=== PATIENT | male | born 1970 | race Caucasian/White ===

== ENCOUNTER 2017-05-02 11:24 | Emergency (ER) | payer MEDICAID, OTHER ==
[~2017-05-02] VITALS: Ht 167.6 cm; Wt 87.0 kg
[~2017-05-02 11:24] MED LIST: AMO500 PO; GUAI118L22 PO
[2017-05-02 11:26] VITALS: Ht 167.6 cm; Wt 87.0 kg
--- NOTE | 2017-05-02 11:47 | ERD ---
ER Documentation Chief Complaint Date/Time DATE: 05/02/17 TIME: 11:45 Chief Complaint Patient complains of left ear ringing x 1 month HPI 46 yo male comes in with left ear ringing, with intermittent sharp pains on the left ear and vertigo for 1 month. Patient states it is a high-pitched ringing noise, has had sharp pains in the last few seconds. He also describes there is vertigo associated, room is spinning. No fevers or chills, no headache, no neck stiffness. No visual changes. Patient states that he was diagnosed with an ear infection in [place] about a month ago, he states that he took antibiotics and does not recall the name of them. ROS All systems reviewed and are negative except as per history of present illness. Medications Home Meds Active Scripts Cetirizine Hcl* (Zyrtec*) 10 Mg Capsule, 10 MG PO DAILY, #30 TAB Prov:VANDANA HERRMANN PA-C 05/02/17 Fluticasone Propionate* (Fluticasone Propionate* Nasal) 50 Mcg/[place] - 16 Gm [place].susp, 1 SPRAY NASAL BID, #1 BOTTLE TO EACH NOSTRIL Prov:VANDANA HERRMANN PA-C 05/02/17 Guaifenesin/Codeine Phosphate (CHERATUSSIN AC SYRUP) 118 Ml Liquid, 5 ML PO Q8 Y for COUGH, #118 ML Prov:BETTYE CORONADO DO 07/26/16 Amoxicillin* (Amoxicillin*) 500 Mg Cap, 500 MG PO TID for 10 Days, CAP Prov:BETTYE CORONADO DO 07/26/16 Allergies Allergies: Coded Allergies: No Known Allergy (Unverified , 05/02/17) PMhx/Soc Medical and Surgical Hx: pt denies Surgical Hx History of Surgery: No Anesthesia Reaction: No Hx Neurological Disorder: No Hx Respiratory Disorders: No Hx Cardiac Disorders: No Hx Psychiatric Problems: No Hx Alcohol Use: No Hx Substance Use: No Hx Tobacco Use: No Smoking Status: Never smoker Physical Exam Vitals Vital Signs Date Time Temp Pulse Resp B/P Pulse Ox O2 Delivery O2 Flow Rate FiO2 05/02/17 11:26 97.7 83 20 164/95 99 Physical Exam General: Well-developed, well-nourished. The patient appears in no acute distress. HEENT: Head is normocephalic, atraumatic. No scleral icterus. Left TM is bulging and there is fluid behind the left ear drum. Right TM is normal. No rash. Neck: Supple. Nontender. Lungs: Clear to auscultation. Normal air movement. Heart: Regular rate and rhythm. S1 and S2 are normal. No murmurs, gallops, or rubs. Abdomen: Soft, nontender, nondistended. Bowel sounds are normoactive. Extremities: No clubbing or cyanosis. Normal pulses. Moving extremities x 4. No weakness. Neuro: M/S: Alert and oriented Face: EOMI, CN II-XII grossly intact Motor: Normal strength throughout Sensation: Normal sensation throughout Speech: Normal Cerebel: Normal coordination Normal gait Normal finger to nose DTR: 2+ and symmetric upper/lower extremities Skin: Normal turgor. No rash or lesions. Results 24 hrs Patient: CAREN CLOUD : 1970 Age: 46 Sex: M MR #: [id number] DOS: 05/02/17 1139 Ordering MD: VANDANA HERRMANN PA-C Location: [facility] Room/Bed: PROCEDURE: CT Brain without contrast. CLINICAL INDICATION: Tinnitus, Neurologic deficit TECHNIQUE: A CT of the brain was performed on multidetector high-resolution CT scanner utilizing axial sections from the skull base through the vertex without contrast. One or more of the following dose reduction techniques were used: Automated exposure control, Adjustment of the mA and/or kV according to patient size, and/or use of iterative reconstruction technique. DOSE: CTDI = 45 mGy and the DLP = 720 mGy-cm. COMPARISON: Head CT 07/22/2014 FINDINGS: No acute intracranial hemorrhage, significant mass effect or midline shift. The johns-white differentiation is grossly preserved. The ventricles are normal in size for age. No significant opacification of the visualized paranasal sinuses or mastoids. IMPRESSION: No significant interval change identified. No acute intracranial findings. RPTAT: AA .Hussain Naidu MD, Date Time Electronically viewed and signed by .Hussain Naidu MD, on 05/02/2017 13:16 .T/ Procedures/MDM 46-year-old male comes emergency department with tenderness over the past month , she states that he was initially treated for an ear infection on the left side with antibiotics in [place]. States that he has no pain, once in a while he does have sharp pain on the left side of the head. There was some fluid behind the left ear, patient will be given decongestants for this. He was advised to take Tylenol and ibuprofen for pain. He did ask for brain imaging at this time, CT of the head is unremarkable. This patient was asked to recheck with his primary care doctor if symptoms do not improve to get a referral to follow-up with ENT. Departure Diagnosis: Primary Impression: Tinnitus Condition: Good VANDANA HERRMANN PA-C May 02, 2017 11:46
--- NOTE | 2017-05-02 13:16 | RADRPT ---
PROCEDURE: CT Brain without contrast. CLINICAL INDICATION: Tinnitus, Neurologic deficit TECHNIQUE: A CT of the brain was performed on multidetector high-resolution CT scanner utilizing a xial sections from the skull base through the vertex without contrast. One or more of the following dose reduction techniques were used: Automated exposure control, Adjustment of the mA and/or kV acc ording to patient size, and/or use of iterative reconstruction technique. DOSE: CTDI = 45 mGy and the DLP = 720 mGy-cm. COMPARISON: Head CT 07/22/2014 FINDINGS: No acute intracranial hemorrhage, significant mass effect or midline shift. The johns-white different iation is grossly preserved. The ventricles are normal in size for age. No significant opacification of the visualized paranasal sinuses or mastoids. IMPRESSION: No significant interval change identified. No acute intracranial findings. RPTAT: AA .Hussain Naidu MD, Date Time Electronically viewed and signed by .uHssain Naidu MD, on 05/02/2017 13:16 .T/
[2017-05-02] MEDS ORDERED: CETI10CA PO (13:33)
[2017-05-02] MEDS ORDERED: FLUT16SP17 NASAL (13:33)
== END 2017-05-02 13:45 | disposition home or self-care (01) ==
LOC: FTE 11:24
DX: H93.12 Tinnitus, left ear (principal); R42 Dizziness and giddiness
CPT/HCPCS: 70450; Z7502

== ENCOUNTER 2019-02-27 14:18 | Observation (INO) | payer MEDICAID ==
[~2019-02-27] VITALS: Ht 175.3 cm; Wt 86.3 kg
[~2019-02-27 14:18] MED LIST changes: +ACET325T33 PO; +ALBU8.5H8 INH; -AMO500 PO; +AMOX500C2 PO; +CETI10CA PO; +FLUT16SP17 NASAL; +IBUP-1542 PO
[2019-02-27] MEDS ORDERED: ONDANSETRON 4 MG INJ IV STA (14:28)
[2019-02-27] MEDS ORDERED: NITROGLYCERIN 2% 1 GM OINT PKT TD STA (14:28)
[2019-02-27] MEDS ORDERED: morphine 4 MG/ML VIAL IV STA (14:28)
[2019-02-27] MEDS ORDERED: NITROGLYCERIN (SL) 0.4 MG TAB SL PRN ×2 (14:30→20:30)
--- NOTE | 2019-02-27 14:46 | ERD ---
ER Documentation Chief Complaint Chief Complaint PT BIB RA from home with c/o non radiating CP since 1340. HPI This is a 48-year-old male with a history of hypertension and anxiety who is here for chest pain. The patient states he was working outside in the yard in the garage and he had one beer with 1 puff of marijuana he said a while later he developed some substernal chest pressure with shortness of breath diaphoresis and nausea vomiting x1. He said the symptoms were not like his prior anxiety attacks especially the chest pain. He is to the chest pain felt different than usual. He said he did feel overwhelmed by the whole experience. He came in by ambulance currently he is just feeling nauseated does have a mild amount of pain still. ROS All systems reviewed and are negative except as per history of present illness. Medications Home Meds Discontinued Scripts Ibuprofen* (Motrin*) 600 Mg Tab, 600 MG PO Q6H PRN for PAIN AND OR ELEVATED TEMP, #30 TAB Prov:YOLIE SEGUNDO PA-C 01/05/19 Acetaminophen* (Tylenol*) 325 Mg Tablet, 2 TAB PO Q6 PRN for PAIN AND OR ELEVATED TEMP, #30 TAB Prov:YOLIE SEGUNDO PA-C 01/05/19 Albuterol Sulfate* (Proair HFA*) 8.5 Gm Hfa.aer.ad, 2 PUFF INH Q4H PRN for WHEEZING AND SOB, #1 INHALER Prov:YOLIE SEGUNDO PA-C 01/05/19 Cetirizine Hcl* (Zyrtec*) 10 Mg Capsule, 10 MG PO DAILY, #30 TAB Prov:VANDANA HERRMANN PA-C 05/02/17 Fluticasone Propionate* (Fluticasone Propionate* Nasal) 50 Mcg/[place] - 16 Gm [place].susp, 1 SPRAY NASAL BID, #1 BOTTLE TO EACH NOSTRIL Prov:VANDANA HERRMANN PA-C 05/02/17 Guaifenesin/Codeine Phosphate (CHERATUSSIN AC SYRUP) 118 Ml Liquid, 5 ML PO Q8 PRN for COUGH, #118 ML Prov:BETTYE CORONADO DO 07/26/16 Amoxicillin* (Amoxicillin*) 500 Mg Cap, 500 MG PO TID for 10 Days, CAP Prov:BETTYE CORONADO DO 07/26/16 Allergies Allergies: Coded Allergies: No Known Allergy (Unverified , 01/05/19) PMhx/Soc History of Surgery: No Anesthesia Reaction: No Hx Neurological Disorder: No Hx Respiratory Disorders: No Hx Cardiac Disorders: No Hx Psychiatric Problems: No Hx Alcohol Use: No Hx Substance Use: No Hx Tobacco Use: No FmHx Family History: No coronary disease Physical Exam Vitals Vital Signs Date Temp Pulse Resp B/P (MAP) Pulse Ox O2 O2 Flow FiO2 Time Delivery Rate 02/27/19 98.0 63 19 96/64 (75) 100 14:32 Physical Exam Const: Well-developed, well-nourished Head: Atraumatic, normocephalic Eyes: Normal Conjunctiva, PERRLA, EOMI, normal sclera, no nystagmus ENT: Normal External Ears, Nose and Mouth, moist mucus membranes. Neck: Full range of motion. No meningismus, no lymphadenopathy. Resp: Clear to auscultation bilaterally, no wheezing, rhonchi, rales Cardio: Regular rate and rhythm, no murmurs, S1 S2 present Abd: Soft, non tender x 4, non distended. Normal bowel sounds, no guarding or rebound, no pulsitile abdominal masses or bruits Skin: No petechiae or rashes, no ecchymosis , no maculopapular rash Back: No midline or flank tenderness Ext: No cyanosis, or edema, FROM x 4, normal inspection, neurovascularly intact x 4 Neur: Awake and alert, STR 5/5 x 4, sensation intact x 4, no focal findings, cerebellum intact Psych: Normal Mood and Affect Result Diagram: 02/27/19 1435 02/27/19 1435 Results 24 hrs Laboratory Tests Test 02/27/19 14:35 White Blood Count 4.3 10^3/ul Red Blood Count 4.21 10^6/ul Hemoglobin 12.7 g/dl Hematocrit 37.4 % Mean Corpuscular Volume 88.8 fl Mean Corpuscular Hemoglobin 30.2 pg Mean Corpuscular Hemoglobin Concent 34.0 g/dl Red Cell Distribution Width 12.6 % Platelet Count 232 10^3/UL Mean Platelet Volume 10.2 fl Immature Granulocytes % 0.200 % Neutrophils % 47.8 % Lymphocytes % 37.7 % Monocytes % 11.5 % Eosinophils % 2.3 % Basophils % 0.5 % Nucleated Red Blood Cells % 0.0 /100WBC Immature Granulocytes # 0.010 10^3/ul Neutrophils # 2.0 10^3/ul Lymphocytes # 1.6 10^3/ul Monocytes # 0.5 10^3/ul Eosinophils # 0.1 10^3/ul Basophils # 0.0 10^3/ul Nucleated Red Blood Cells # 0.0 10^3/ul Prothrombin Time 12.3 Sec Prothrombin Time Ratio 1.0 INR International Normalized Ratio 0.90 Activated Partial Thromboplast Time 22.4 Sec Sodium Level 139 mmol/L Potassium Level 4.3 mmol/L Chloride Level 106 mmol/L Carbon Dioxide Level 22 mmol/L Anion Gap 11 Blood Urea Nitrogen 16 mg/dl Creatinine 1.01 mg/dl Est Glomerular Filtrat Rate mL/min > 60 mL/min Glucose Level 115 mg/dl Calcium Level 9.0 mg/dl Total Bilirubin 0.5 mg/dl Direct Bilirubin 0.00 mg/dl Indirect Bilirubin 0.5 mg/dl Aspartate Amino Transf (AST/SGOT) 19 IU/L Alanine Aminotransferase (ALT/SGPT) 11 IU/L Alkaline Phosphatase 91 IU/L Troponin I < 0.012 ng/ml Total Protein 6.6 g/dl Albumin 4.0 g/dl Globulin 2.60 g/dl Albumin/Globulin Ratio 1.53 Current Medications Medications Dose Sig/Heidy Start Time Status Last (Trade) Ordered Route PRN Stop Time Admin Dose Reason Admin 1 inch ONCE STAT 02/27/19 DC 02/27/19 Nitroglycerin TD 14:02/27/19 14:50 14:30 (Nitroglyceri n 2% Oint) 1 tab Q5M UP TO 3 02/27/19 Nitroglycerin DOSES PRN 14:30 SL .CHEST (Nitroglyceri PAIN n (Sl Tab) 0.4 Mg) Morphine 4 mg ONCE STAT 02/27/19 DC 02/27/19 Sulfate IV 14:28 02/27/19 14:50 (morphine) 14:30 Ondansetron 4 mg ONCE STAT 02/27/19 DC 02/27/19 HCl (Zofran IV 14:28 02/27/19 14:50 Inj) 14:30 Procedures/MDM EKG: Rate/Rhythm: Normal Sinus Rhythm,NL intervals QRS, ST, QT: NORMAL DC, QRS, QT] Impression: NORMAL EKG Patient: CAREN CLOUD : 1970 Age: 48 Sex: M MR #: [id number] DOS: 02/27/19 1428 Ordering MD: YG TORRES DO Location: E/R Room/Bed: PROCEDURE: XR Chest. CLINICAL INDICATION: Chest pain TECHNIQUE: Frontal chest x-ray was obtained. COMPARISON: None. FINDINGS: The heart is not enlarged. Mediastinum is not widened. No hilar masses seen. Lungs are clear of any infiltrates. There is no effusion or pneumothorax. The osseous structures appear normal. IMPRESSION: No evidence for active cardiopulmonary disease. .Wayne Lubin MD, MD Date Time Electronically viewed and signed by .Wayne Lubin MD, MD on 02/27/2019 16:14 .A/ CC: YG TORRES DO [id number] Cardiac Admit MDM: Patient's symptoms are concerning for cardiac cause will require inpatient workup and continuous monitoring. Further w/u for ischemia, arrhythmia, PE or dissection will be deferred to the inpatient team. Departure Diagnosis: Primary Impression: Chest pain Chest pain type: unspecified Qualified Codes: R07.9 - Chest pain, unspecified Condition: Stable YG TORRES DO Feb 27, 2019 14:46
[2019-02-27] MEDS ORDERED: ONDANSETRON 4 MG INJ IV PRN ×2 (17:00→20:30)
[2019-02-27] MEDS ORDERED: ACETAMINOPHEN 325 MG TAB PO PRN ×2 (17:00→20:30)
--- NOTE | 2019-02-27 18:13 | HP ---
Date/Time of Note Date/Time of Note DATE: 02/27/19 TIME: 18:09 Assessment/Plan VTE Prophylaxis Pharmacological prophylaxis: heparin Lines/Catheters IV Catheter Type (from Nrsg): Saline Lock Assessment/Plan Hospital Course 48 yo male with chornic anxiety presents with atypical chest pain - By history, this is very likely related to stress/anxiety - We will check another troponin to exclude ACS. EKG is not consistent with acute ischemia - Unlikely PE given no SOB or hypoxia - Perhpas related to marijuana inhalation - If troponin negative can be discharged later this evening as he prefers to be Result Diagram: 02/27/19 1435 02/27/19 1435 Results 24hrs Laboratory Tests Test 02/27/19 14:35 White Blood Count 4.3 #L Red Blood Count 4.21 #L Hemoglobin 12.7 #L Hematocrit 37.4 #L Mean Corpuscular Volume 88.8 Mean Corpuscular Hemoglobin 30.2 Mean Corpuscular Hemoglobin Concent 34.0 Red Cell Distribution Width 12.6 Platelet Count 232 # Mean Platelet Volume 10.2 Immature Granulocytes % 0.200 Neutrophils % 47.8 Lymphocytes % 37.7 Monocytes % 11.5 H Eosinophils % 2.3 Basophils % 0.5 Nucleated Red Blood Cells % 0.0 Immature Granulocytes # 0.010 Neutrophils # 2.0 Lymphocytes # 1.6 Monocytes # 0.5 Eosinophils # 0.1 Basophils # 0.0 Nucleated Red Blood Cells # 0.0 Prothrombin Time 12.3 Prothrombin Time Ratio 1.0 INR International Normalized Ratio 0.90 Activated Partial Thromboplast Time 22.4 L Sodium Level 139 Potassium Level 4.3 Chloride Level 106 Carbon Dioxide Level 22 Anion Gap 11 Blood Urea Nitrogen 16 Creatinine 1.01 Est Glomerular Filtrat Rate mL/min > 60 Glucose Level 115 Calcium Level 9.0 Total Bilirubin 0.5 Direct Bilirubin 0.00 Indirect Bilirubin 0.5 Aspartate Amino Transf (AST/SGOT) 19 Alanine Aminotransferase (ALT/SGPT) 11 L Alkaline Phosphatase 91 Troponin I < 0.012 Total Protein 6.6 Albumin 4.0 Globulin 2.60 Albumin/Globulin Ratio 1.53 HPI/ROS Admit Date/Time Admit Date/Time Hx of Present Illness 48 yo male with chronic anxiety, panic d/o presents with chest tightness Patient describes very severe anxiety affecting his life. Very stressed by lots of things: /relationship, money, care problems, job. Has chronic tinnitus in his ear. Very stressed and anxious today, smoked some medical marijauna he has to deal with this. Then began feeling tightness in his chest. This occured shortly after noon today. Continue to have chest pressure so came to ED. Denies any chronic angina. No exertional symptoms. Pain is now gone. No SOB. No palpitations. No edema. ROS Constitutional: no complaints, improved Eyes: no complaints ENT: no complaints Respiratory: no complaints Cardiovascular: no complaints Gastrointestinal: no complaints Genitourinary: no complaints Musculoskeletal: no complaints Skin: no complaints Neurologic: no complaints Endocrine: no complaints Lymphatic: no complaints Psychological: no complaints, nl mood/affect Immunologic: no complaints PMH/Family/Social Past Medical History Medical History: no pertinent history Medications Current Medications Nitroglycerin (Nitroglycerin (Sl Tab) 0.4 Mg) 1 tab Q5M UP TO 3 DOSES PRN SL .CHEST PAIN; Start 02/27/19 at 14:30 Ondansetron HCl (Zofran Inj) 4 mg ER BRIDGE PRN IV NAUSEA/VOMITING; Start 02/27/19 at 17:00; Stop 02/28/19 at 16:59 Acetaminophen (Tylenol Tab) 650 mg ER BRIDGE PRN PO .MILD PAIN 1-3 OR TEMP; Start 02/27/19 at 17:00; Stop 02/28/19 at 16:59 Coded Allergies: No Known Allergy (Unverified , 01/05/19) Past Surgical History Past Surgical Hx: no surgical history Family History Significant Family History: no pertinent family hx Social History Alcohol Use: none Smoking Status: Never smoker Drug Use: none Exam/Review of Systems Vital Signs Vitals Vital Signs Date Temp Pulse Resp B/P (MAP) Pulse Ox O2 O2 Flow FiO2 Time Delivery Rate 02/27/19 98.2 72 18 116/74 100 Room Air 17:00 (88) Exam Constitutional: alert, oriented, well developed Psych: no complaints, nl mood/affect Head: normocephalic, atraumatic Eyes: nl conjunctiva, EOMI, nl lids, nl sclera, PERRL ENMT: nl external ears & nose, nl lips & teeth, nl nasal mucosa & septum Neck: supple, non-tender Respiratory: clear to auscultation, normal air movement Cardiovascular: regular rate and rhythm, nl pulses Gastrointestinal: soft, nl liver, spleen, non-tender Musculoskeletal: nl extremities to inspection Extremities: normal pulses Neurological: PAYMENT PROCESSOR II-XII intact, nl mental status, nl speech, nl strength Skin: nl turgor; No rash or lesions Lymph: nl lymph nodes GUY HAIRSTON MD Feb 27, 2019 18:13
[2019-02-27 19:38] VITALS: PULSE 76
[2019-02-27 20:00] VITALS: PULSE 71
[2019-02-27 20:30] VITALS: BP 124/69; PULSE 65; RESP 18
[2019-02-27] MEDS ORDERED: DOCUSATE SODIUM 100 MG CAP PO PRN (20:30)
[2019-02-27] MEDS ORDERED: BISACODYL (EC) 5 MG TAB PO PRN (20:30)
[2019-02-27] MEDS ORDERED: morphine 2 MG INJ IV PRN (20:30)
[2019-02-27] MEDS ORDERED: NACL 0.9% 3 ML SYG IV SCH (20:30)
[2019-02-27 20:53] VITALS: Ht 175.3 cm; Wt 86.3 kg
[2019-02-28] VITALS: BP 102/55; PULSE 77; PULSE 90; RESP 17
[2019-02-28 04:00] VITALS: BP 106/58; PULSE 62; PULSE 67; RESP 18
[2019-02-28 07:05] VITALS: BP 113/71; PULSE 61; RESP 18
[2019-02-28 08:00] VITALS: PULSE 59
[2019-02-28] MEDS ORDERED: ASPIRIN 81 MG TAB PO SCH (09:00)
[2019-02-28 11:02] VITALS: BP 116/71; PULSE 72; RESP 18
--- NOTE | 2019-02-28 11:02 | PDOCDIS ---
Discharge Instructions DIAGNOSIS Discharge Diagnosis Non-cardiac chest pain CONDITION [id number] Patient Condition: [id number] Stable FOLLOW UP/APPOINTMENTS Follow-up Plan See your primary care provider Return to the hospital if you have any concerning symptoms It may be good to see a therapist to discuss your anxiety and stress GUY HAIRSTON MD Feb 28, 2019 11:02
--- NOTE | 2019-02-28 11:09 | DS ---
Date/Time of Note Date/Time of Note DATE: 02/28/19 TIME: 11:08 Discharge Summary Admission/Discharge Info Admit Date/Time Feb 27, 2019 at 16:46 Discharge Date/Time Discharge Diagnosis Non-cardiac chest pain Patient Condition: Stable Hx of Present Illness 48 yo male with chronic anxiety, panic d/o presents with chest tightness Patient describes very severe anxiety affecting his life. Very stressed by lots of things: /relationship, money, care problems, job. Has chronic tinnitus in his ear. Very stressed and anxious today, smoked some medical marijauna he has to deal with this. Then began feeling tightness in his chest. This occured shortly after noon today. Continue to have chest pressure so came to ED. Denies any chronic angina. No exertional symptoms. Pain is now gone. No SOB. No palpitations. No edema. Hospital Course 48 yo male with chornic anxiety presented with atypical chest pain - By history, this was very likely related to stress/anxiety - We trended troponin to exclude ACS. EKG wass not consistent with acute ischemia - Unlikely PE given no SOB or hypoxia - Perhaps related to marijuana inhalation - No events on telemetry - Encouraged to follow up with PMD Home Meds Discontinued Scripts Ibuprofen* (Motrin*) 600 Mg Tab, 600 MG PO Q6H PRN for PAIN AND OR ELEVATED TEMP, #30 TAB Prov:YOLIE SEGUNDO PA-C 01/05/19 Acetaminophen* (Tylenol*) 325 Mg Tablet, 2 TAB PO Q6 PRN for PAIN AND OR E LEVATED TEMP, #30 TAB Prov:YOLIE SEGUNDO PA-C 01/05/19 Albuterol Sulfate* (Proair HFA*) 8.5 Gm Hfa.aer.ad, 2 PUFF INH Q4H PRN for WHEEZING AND SOB, #1 INHALER Prov:YOLIE SEGUNDO PA-C 01/05/19 Cetirizine Hcl* (Zyrtec*) 10 Mg Capsule, 10 MG PO DAILY, #30 TAB Prov:VANDANA HERRMANN PA-C 05/02/17 Fluticasone Propionate* (Fluticasone Propionate* Nasal) 50 Mcg/[place] - 16 Gm [place].susp, 1 SPRAY NASAL BID, #1 BOTTLE TO EACH NOSTRIL Prov:VANDANA HERRMANN PA-C 05/02/17 Guaifenesin/Codeine Phosphate (CHERATUSSIN AC SYRUP) 118 Ml Liquid, 5 ML PO Q8 PRN for COUGH, #118 ML Prov:BETTYE CORONADO DO 07/26/16 Amoxicillin* (Amoxicillin*) 500 Mg Cap, 500 MG PO TID for 10 Days, CAP Prov:BETTYE CORONADO DO 07/26/16 Follow-up Plan See your primary care provider Return to the hospital if you have any concerning symptoms It may be good to see a therapist to discuss your anxiety and stress Primary Care Provider Anthony Ford MD Pending Labs Laboratory Tests Test 02/27/19 14:35 02/27/19 18:02 02/27/19 22:20 02/28/19 06:19 White Blood 4.3 6.7 Count 10^3/ul (4.8-10 10^3/ul (4.8-1 .8) 0.8) Red Blood 4.21 4.51 Count 10^6/ul (4.70-6 10^6/ul (4.70- .10) 6.10) Hemoglobin 12.7 13.7 g/dl (14.0-18.0 g/dl (14.0-18. ) 0) Hematocrit 37.4 41.0 % (42.0-52.0) % (42.0-52.0) Mean 88.8 90.9 Corpuscular fl (82.0-101.0) fl (82.0-101.0 Volume ) Mean 30.2 30.4 Corpuscular pg (29.0-33.0) pg (29.0-33.0) Hemoglobin Mean 34.0 33.4 Corpuscular g/dl (32.0-37.0 g/dl (32.0-37. Hemoglobin Conc ) 0) ent Red Cell 12.6 13.1 Distribution % (11.5-14.5) % (11.5-14.5) Width Platelet Count 232 249 10^3/UL (140-41 10^3/UL (140-4 5) 15) Mean Platelet 10.2 10.2 Volume fl (7.4-10.4) fl (7.4-10.4) Immature 0.200 0.400 Granulocytes % % (0.001-0.429) % (0.001-0.429 ) Neutrophils % 47.8 54.2 % (39.0-77.0) % (39.0-77.0) Lymphocytes % 37.7 31.3 % (15.0-51.0) % (15.0-51.0) Monocytes % 11.5 10.1 % (0.0-11.0) % (0.0-11.0) Eosinophils % 2.3 % (0.0-7.0) 3.6 % (0.0-7.0) Basophils % 0.5 % (0.0-2.0) 0.4 % (0.0-2.0) Nucleated Red 0.0 0.0 Blood Cells % /100WBC (0.0-0. /100WBC (0.0-0 0) .0) Immature 0.010 0.030 Granulocytes # 10^3/ul (0.0-0. 10^3/ul (0.0-0 031) .031) Neutrophils # 2.0 3.7 10^3/ul (1.6-7. 10^3/ul (1.6-7 5) .5) Lymphocytes # 1.6 2.1 10^3/ul (0.8-2. 10^3/ul (0.8-2 9) .9) Monocytes # 0.5 0.7 10^3/ul (0.3-0. 10^3/ul (0.3-0 9) .9) Eosinophils # 0.1 0.2 10^3/ul (0.0-0. 10^3/ul (0.0-0 5) .5) Basophils # 0.0 0.0 10^3/ul (0.0-0. 10^3/ul (0.0-0 1) .1) Nucleated Red 0.0 0.0 Blood Cells # 10^3/ul (0.0-0. 10^3/ul (0.0-0 0) .0) Prothrombin 12.3 Time Sec (11.9-14.9) Prothrombin 1.0 Time Ratio INR 0.90 International Normalized Rati o Activated 22.4 Partial Thrombo Sec (23.0-35.0) plast Time Sodium Level 139 141 mmol/L (135-144 mmol/L (135-14 ) 4) Potassium 4.3 4.6 Level mmol/L (3.5-5.1 mmol/L (3.5-5. ) 1) Chloride Level 106 110 mmol/L (97-110) mmol/L (97-110 ) Carbon Dioxide 22 25 Level mmol/L (21-31) mmol/L (21-31) Anion Gap 11 (5-13) 6 (5-13) Blood Urea 16 mg/dl (7-20) 15 Nitrogen mg/dl (7-20) Creatinine 1.01 1.11 mg/dl (0.61-1.2 mg/dl (0.61-1. 4) 24) Est Glomerular > 60 > 60 Filtrat mL/min (>60) mL/min (>60) Rate mL/min Glucose Level 115 91 mg/dl (70-220) mg/dl (70-220) Calcium Level 9.0 8.6 mg/dl (8.4-10.2 mg/dl (8.4-10. ) 2) Total 0.5 0.4 Bilirubin mg/dl (0.2-1.3) mg/dl (0.2-1.3 ) Direct 0.00 0.00 Bilirubin mg/dl (0.00-0.2 mg/dl (0.00-0. 0) 20) Indirect 0.5 0.4 Bilirubin mg/dl (0-1.1) mg/dl (0-1.1) Aspartate Amino 19 IU/L (15-46) 14 Transf (AST/SGO IU/L (15-46) T) Alanine 11 IU/L (13-69) 15 Aminotransferas IU/L (13-69) e (ALT/SGPT) Alkaline 91 75 Phosphatase IU/L (42-121) IU/L (42-121) Troponin I < 0.012 < 0.012 < 0.012 < 0.012 ng/ml (0.000-0. ng/ml (0.000-0 ng/ml (0.000-0 ng/ml (0.000-0 120) .120) .120) .120) Total Protein 6.6 5.7 g/dl (6.1-8.1) g/dl (6.1-8.1) Albumin 4.0 3.3 g/dl (3.3-4.9) g/dl (3.3-4.9) Globulin 2.60 2.40 g/dl (1.3-3.2) g/dl (1.3-3.2) Albumin/Globuli 1.53 1.37 n Ratio Creatine 58 48 Kinase IU/L (23-200) IU/L (23-200) Creatine Kinase 0.4 0.5 Index Creatinine < 0.22 < 0.22 Kinase MB ng/ml (0.0-2.4 ng/ml (0.0-2.4 (Mass) ) ) Hemoglobin A1c 5.5 % (0-5.9) Magnesium 2.1 Level mg/dl (1.7-2.5 ) Triglycerides 82 Level mg/dl (0-149) Cholesterol 134 Level mg/dl (100-200 ) LDL 79 mg/dl Cholesterol, Calculated HDL 39 Cholesterol mg/dl (27-67) Cholesterol/HDL 3.4 RATIO Ratio Thyroid 1.030 Stimulating MIU/L (0.465-4 Hormone (TSH) .680) GUY HAIRSTON MD Feb 28, 2019 11:09
[2019-02-28 12:00] VITALS: PULSE 60
--- NOTE | 2019-02-28 13:31 | RADRPT ---
Echocardiogram Report Patient Name: CAREN CLOUDPatient ID: [id number] : 1970 (48y 9m)Study Date: 02/28/2019 11:11:58 AM Gender: MAccession #: [id number] Tech: Roseline Gómez [facility] Location: [facility] Ref.Physician: NEREIDA KENDRICK Height(Cm): BSA: Weight(Kg): Quality: AdequateAccount #: Procedures: Echocardiographic Report: Transthoracic echocardiogram with complete 2D, M-Mode, and doppler examination. Indications: Chest Pain. Measurements: 2D/M Mode Doppler Measurement Value Normal Range Measurement Value Normal Range LVIDd 2D 3.5 [ 4.2 - 5.8 ] cm AV Peak Percy 0.9 [ 100.0 - 170.0 ] cm/se c LVIDs 2D 2.2 [ 2.5 - 4.0 ] cm AV Peak PG 4.0 [ 2.0 - 9.0 ] mmHg LVPWd 2D 0.9 [ 0.6 - 1.0 ] cm LVOT Peak Percy 0.7 [ 70.0 - 110.0 ] cm/sec IVSd 2D 0.6 [ 0.6 - 1.0 ] cm LVOT Peak PG 2.0 [ 2.0 - 6.0 ] mmHg EDV 2D 49.8 [ 62.0 - 150.0 ] ml MV E Peak Percy 0.9 [ 60.0 - 130.0 ] cm/sec ESV 2D 17.0 [ 21.0 - 61.0 ] ml MV A Peak Percy 0.6 [ 100.0 - 120.0 ] cm/se c EF 2D 65.9 [ 52.0 - 72.0 ] percent MV E/A 1.5 [ 0.8 - 1.5 ] ratio LA Dimen 2D 3.0 [ 3.0 - 4.0 ] cm MV PHT 56.0 [ 20.0 - 100.0 ] msec MV Decel Time 190 [ 104 - 258 ] msec MV Decel Waller 5 Lat E` Percy 0.1 [ 10.0 - 15.0 ] cm/sec Lateral E/E` 6.5 [ 1.0 - 2.0 ] ratio Med E` Percy 0.1 cm/sec MV E/A 1.5 [ 0.8 - 1.5 ] ratio MVA PHT 3.9 [ 2.0 - 4.0 ] cm2 TR Peak Percy 2.1 [ 100.0 - 280.0 ] cm/se c TR Peak PG 18.0 mmHg Findings: Left Ventricle: Normal left ventricular systolic function. Normal left ventricular cavity size. Normal left ventricular wall thickness. Ejection fraction is visually estimated at 55-60 %. Tissue Doppler/Mitral Doppler indices are within normal limits. Right Ventricle: Normal right ventricular size. Normal right ventricular systolic function. Left Atrium: The left atrium is normal in size. Right Atrium: The right atrium is normal in size. Atrial Septum: Normal atrial septum. Ventricular septum: Normal/intact ventricular septum. Mitral Valve: Normal appearance of the mitral valve. Aortic Valve: Normal appearance of the aortic valve. No aortic regurgitation. Tricuspid Valve: Normal appearance of the tricuspid valve. Estimated peak PA systolic pressure 21 mmHg. No evidence of tricuspid regurgitation. Pulmonic Valve: Normal pulmonic valve appearance. No evidence of pulmonic regurgitation. Pericardium: Normal pericardium with no significant pericardial effusion. Aorta: Normal aortic root. IVC: Normal size and normal respiratory collapse consistent with normal right atrial pressure. Pulmonary Artery: Not well visualized. Conclusions: Normal left ventricular systolic function. Normal left ventricular cavity size. Normal left ventricular wall thickness. Ejection fraction is visually estimated at 55-60 %. Tissue Doppler/Mitral Doppler indices are within normal limits. No significant valvular stenosis or regurgitation seen. Estimated peak PA systolic pressure 21 mmHg. Normal size and normal respiratory collapse consistent with normal right atrial pressure. Electronically Signed By: Shamar Donaldson 2019-02-28 13:29:57 PDT
== END 2019-02-28 13:54 | disposition home or self-care (01) ==
LOC: E/R 14:18 → TEL 16:46
PROVIDERS: ADMIT Internal Medicine; ATTEND Internal Medicine
DX: R07.89 Other chest pain (principal); F41.9 Anxiety disorder, unspecified; H93.19 Tinnitus, unspecified ear; F12.90 Cannabis use, unspecified, uncomplicated
CPT/HCPCS: 36415; 71045; 80053; 80061; 82550; 82553; 83036; 83735; 84443; 84484; 85025; 85610; 85730; 93005; 93306; 96374; 96375; J2270; J2405; Z7500; Z7502; Z7610; G0378